=== PATIENT | female | born 1990 | race Asian ===

== ENCOUNTER 2018-06-23 08:14 | Emergency (ER) | payer OTHER ==
[~2018-06-23] VITALS: Ht 165.1 cm; Wt 68.8 kg
[2018-06-23 09:40] LABS: BASOPHILS % (AUTO) 0.9 % (0-1); EOSINOPHILS # (AUTO) 0.1 X10'3 (0-0.9); EOSINOPHILS % (AUTO) 2.4 % (0-6); HEMATOCRIT 34.4 % (35.0-45.0); LYMPHOCYTES # (AUTO) 1.2 X10'3 (1.1-4.8); LYMPHOCYTES % (AUTO) 22.7 % (21-51); MEAN CORPUSCULAR HEMOGLOBIN 30.2 PG (27.0-31.0); MEAN CORPUSCULAR HGB CONC 34.9 g/dL (33.0-36.5); MEAN CORPUSCULAR VOLUME 86.7 FL (78-98); MEAN PLATELET VOLUME 8.1 FL (7.4-10.4); MONOCYTES # (AUTO) 0.4 X10'3 (0-0.9); MONOCYTES % (AUTO) 7.7 % (2-12); NEUTROPHILS # (AUTO) 3.6 X10'3 (1.8-7.7); NEUTROPHILS % (AUTO) 66.3 % (42-75); PLATELET COUNT 222 X10'3 (140-440); RED BLOOD COUNT 3.96 X10'6 (4.20-5.60); RED CELL DISTRIBUTION WIDTH 13.7 % (11.5-14.5); WHITE BLOOD COUNT 5.5 X10'3 (4.5-11.0)
[2018-06-23 09:42] LABS: CLARITY,URINE CLOUDY (Clear); COLOR,URINE YELLOW (Yellow); GLUCOSE, URINE NEGATIVE (Neg); KETONES,URINE NEGATIVE (Neg); LEUKOCYTE ESTERASE ,URINE NEGATIVE (Neg); NITRITES, URINE NEGATIVE (Neg); OCCULT BLOOD,URINE LARGE (Neg); PH,URINE 5.5 (4.8-8.0); PROTEIN,URINE NEGATIVE (Neg); UROBILINOGEN,URINE 0.2 E.U/dL (0.2-1.0)
[2018-06-23 09:46] LABS: UA COLLECTION TYPE CLN CATCH MIDSTREAM
[2018-06-23 09:47] LABS: BACTERIA,URINE 1+ /HPF (Neg); MUCUS STRANDS MODERATE /LPF (Neg); RBC,URINE 0-2 /HPF (0-2); SQUAMOUS EPITHELIAL CELL,UR MANY /LPF (FEW); WBC,URINE 0-4 /HPF (0-4)
[2018-06-23 11:53] VITALS: BP 109/61
== END 2018-06-23 12:41 | disposition home or self-care (01) ==
LOC: ER 08:14
DX: O41.8X10 Other specified disorders of amniotic fluid and membranes, first trimester, not applicable or unspecified (principal); O46.8X1 Other antepartum hemorrhage, first trimester; Z3A.10 10 weeks gestation of pregnancy; Z98.890 Other specified postprocedural states
CPT/HCPCS: 36415; 76801; 81001; 84702; 85025; 86900; 86901; 99285

== ENCOUNTER 2018-07-08 09:43 | Outpatient (CLI) | payer OTHER ==
[2018-07-08 10:43] LABS: BASOPHILS % (AUTO) 0.4 % (0-1); EOSINOPHILS # (AUTO) 0.2 X10'3 (0-0.9); EOSINOPHILS % (AUTO) 2.9 % (0-6); HEMATOCRIT 36.7 % (35.0-45.0); HEMOGLOBIN 12.6 g/dl (12.0-16.0); LYMPHOCYTES # (AUTO) 1.2 X10'3 (1.1-4.8); LYMPHOCYTES % (AUTO) 22.3 % (21-51); MEAN CORPUSCULAR HEMOGLOBIN 29.9 PG (27.0-31.0); MEAN CORPUSCULAR HGB CONC 34.3 g/dL (33.0-36.5); MEAN PLATELET VOLUME 8.4 FL (7.4-10.4); MONOCYTES # (AUTO) 0.3 X10'3 (0-0.9); NEUTROPHILS # (AUTO) 3.7 X10'3 (1.8-7.7); NEUTROPHILS % (AUTO) 68.4 % (42-75); PLATELET COUNT 228 X10'3 (140-440); RED BLOOD COUNT 4.23 X10'6 (4.20-5.60); WHITE BLOOD COUNT 5.5 X10'3 (4.5-11.0)
[2018-07-08 11:35] LABS: HIV ANTIBODY 1&2 RAPID NON-REACTIVE (Neg)
[2018-07-09 08:18] LABS: RPR Non Reactive (Non Reactive)
== END 2018-07-08 23:59 | disposition home or self-care (01) ==
LOC: LAB 09:43
PROVIDERS: ATTEND Physician Assistant
DX: Z34.91 Encounter for supervision of normal pregnancy, unspecified, first trimester (principal); Z3A.12 12 weeks gestation of pregnancy
CPT/HCPCS: 36415; 83036; 85025; 86592; 86703; 86706; 86762; 86900; 86901; 87088

== ENCOUNTER 2018-12-17 00:56 | Emergency (ER) | payer OTHER ==
[~2018-12-17] VITALS: Ht 170.2 cm; Wt 78.2 kg
[2018-12-17] MEDS ORDERED: famotidine 20mg tablet PO ONE (01:15)
[2018-12-17] MEDS ORDERED: mag hydrox/Alum hydrox/simeth 30ml oral suspension PO ONE (01:15)
[2018-12-17] MEDS ORDERED: LIDOcaine Viscous 15ml cup PO ONE (01:15)
--- NOTE | 2018-12-17 01:32 | NUR ---
PT PROVIDED UA. DR. AKHTAR REPORTS HE WILL GIVE GI COCKTAIL AND SEE HOW SHE RESPONDS, MY NEED TO DO LABS LATER. AT BEDSIDE
[2018-12-17] MEDS ORDERED: normal saline 1000ML IV soln IVB ONE (01:40)
[2018-12-17] MEDS ORDERED: morphine 4 MG/ML inj SYRINge IV PRN (01:40)
[2018-12-17 02:09] LABS: BASOPHILS # (AUTO) 0.1 X10'3 (0-0.2); BASOPHILS % (AUTO) 0.8 % (0-1); EOSINOPHILS # (AUTO) 0.1 X10'3 (0-0.9); EOSINOPHILS % (AUTO) 1.8 % (0-6); HEMOGLOBIN 11.7 g/dl (12.0-16.0); LYMPHOCYTES # (AUTO) 0.9 X10'3 (1.1-4.8); LYMPHOCYTES % (AUTO) 12.5 % (21-51); MEAN CORPUSCULAR HEMOGLOBIN 29.8 PG (27.0-31.0); MEAN CORPUSCULAR HGB CONC 34.4 g/dL (33.0-36.5); MEAN CORPUSCULAR VOLUME 86.7 FL (78-98); MONOCYTES # (AUTO) 0.5 X10'3 (0-0.9); MONOCYTES % (AUTO) 7.6 % (2-12); NEUTROPHILS # (AUTO) 5.4 X10'3 (1.8-7.7); NEUTROPHILS % (AUTO) 77.3 % (42-75); PLATELET COUNT 155 X10'3 (140-440); RED BLOOD COUNT 3.93 X10'6 (4.20-5.60); RED CELL DISTRIBUTION WIDTH 15.5 % (11.5-14.5)
[2018-12-17 02:09] LABS: CLARITY,URINE CLEAR (Clear); COLOR,URINE YELLOW (Yellow); GLUCOSE, URINE NEGATIVE (Neg); KETONES,URINE NEGATIVE (Neg); LEUKOCYTE ESTERASE ,URINE NEGATIVE (Neg); NITRITES, URINE NEGATIVE (Neg); OCCULT BLOOD,URINE NEGATIVE (Neg); PH,URINE 6.5 (4.8-8.0); PROTEIN,URINE NEGATIVE (Neg); UROBILINOGEN,URINE 0.2 E.U/dL (0.2-1.0)
[2018-12-17 02:11] LABS: UA COLLECTION TYPE VOIDED
--- NOTE | 2018-12-17 02:21 | NUR ---
PT REPROTS PAIN NOW DOWN TO 5 OUT OF 10 APROX 45 MIN AFTER GI COCKTAIL ADMINISTERED. LABS DRAWN URINE SENT TO LAB AND 1 LITER NS STARTED. PT DECLINES NEED FOR MORPHINE AT THIS TIME. REMAINS AT BEDSIDE.
[2018-12-17 02:22] LABS: ALANINE AMINOTRANSFERASE 34 U/L (12-78); ALBUMIN 3.1 G/DL (3.4-5.0); ALBUMIN/GLOBULIN RATIO 0.7 (1.1-1.5); ALKALINE PHOSPHATASE 123 IU/L (46-116); ANION GAP 9 (8-16); ASPARTATE AMINO TRANSFERASE 116 U/L (10-37); BILIRUBIN,TOTAL 1.7 MG/DL (0.1-1.0); BLOOD UREA NITROGEN 6 MG/DL (7-18); BUN/CREATININE RATIO 10.7 (6.6-38.0); CHLORIDE 102 MMOL/L (99-107); CREATININE 0.56 MG/DL (0.40-0.90); GLUCOSE 92 MG/DL (70-104); LIPASE 115 U/L (73-393); POTASSIUM 3.7 MMOL/L (3.5-5.1); SODIUM 135 MMOL/L (135-145); TOTAL PROTEIN 7.4 G/DL (6.4-8.2); eGFR > 90 ML/MIN
--- NOTE | 2018-12-17 02:50 | NUR ---
dr. pimentel talking with pts about dc instruction. he reports he will call dr. harry chang in am.
[2018-12-17 02:51] VITALS: BP 102/64
== END 2018-12-17 02:57 | disposition home or self-care (01) ==
LOC: ER 00:57
DX: O26.893 Other specified pregnancy related conditions, third trimester (principal); R10.13 Epigastric pain; E80.7 Disorder of bilirubin metabolism, unspecified; Z98.890 Other specified postprocedural states; Z3A.34 34 weeks gestation of pregnancy
CPT/HCPCS: 36415; 80053; 81003; 83690; 85025; 99283; 99284

== ENCOUNTER 2019-05-19 09:40 | Day surgery (SDC) | payer OTHER ==
[2019-05-13 10:13] LABS: BASOPHILS # (AUTO) 0.1 X10'3 (0-0.2); BASOPHILS % (AUTO) 1.2 % (0-1); EOSINOPHILS # (AUTO) 0.2 X10'3 (0-0.9); EOSINOPHILS % (AUTO) 3.5 % (0-6); LYMPHOCYTES # (AUTO) 1.4 X10'3 (1.1-4.8); LYMPHOCYTES % (AUTO) 28.5 % (21-51); MEAN CORPUSCULAR HEMOGLOBIN 27.6 PG (27.0-31.0); MEAN CORPUSCULAR HGB CONC 33.5 g/dL (33.0-36.5); MEAN CORPUSCULAR VOLUME 82.3 FL (78-98); MEAN PLATELET VOLUME 7.9 FL (7.4-10.4); MONOCYTES # (AUTO) 0.4 X10'3 (0-0.9); MONOCYTES % (AUTO) 8.1 % (2-12); NEUTROPHILS # (AUTO) 2.9 X10'3 (1.8-7.7); NEUTROPHILS % (AUTO) 58.7 % (42-75); PRE OP HEMATOCRIT 38.7 % (35.0-45.0); PRE OP PLATELET COUNT 244 X10'3 (140-440); RED BLOOD COUNT 4.71 X10'6 (4.20-5.60); RED CELL DISTRIBUTION WIDTH 16.7 % (11.5-14.5)
[2019-05-13 10:32] LABS: ALBUMIN 4.3 G/DL (3.4-5.0); ALKALINE PHOSPHATASE 73 IU/L (46-116); BLOOD UREA NITROGEN 11 MG/DL (7-18); BUN/CREATININE RATIO 20.4 (6.6-38.0); CALCIUM 9.5 MG/DL (8.5-10.1); CHLORIDE 102 MMOL/L (99-107); CREATININE 0.54 MG/DL (0.40-0.90); PRE OP ALT 17 U/L (30-65); PRE OP ANION GAP 7 (8-16); PRE OP AST 17 U/L (10-37); PRE OP BILIRUB, TOTAL 0.5 MG/DL (0.0-1.0); PRE OP GLUCOSE 109 MG/DL (70-104); PRE OP POTASSIUM 3.9 MMOL/L (3.4-5.1); PRE OP SODIUM 137 MMOL/L (135-145); TOTAL CARBON DIOXIDE 27.7 MMOL/L (24-32); TOTAL PROTEIN 8.5 G/DL (6.4-8.2); eGFR > 90 ML/MIN
[2019-05-13 10:50] LABS: HCG SERUM QL NEGATIVE
[2019-05-19] VITALS (13 sets, daily range): BP systolic 101–136; BP diastolic 60–84
[~2019-05-19] VITALS: Ht 165.1 cm; Wt 68.0 kg
[~2019-05-19 09:40] MED LIST: NO HOME MEDS; famotidine 10mg tablet PO ONE; ringers solution, lacted 1,000 ML IV SCH
[2019-05-19] MEDS ORDERED: BUPIVAcaine/PF 2.5 mg/ml (0.25%) 30ml vial ONE (13:38)
[2019-05-19] MEDS ORDERED: ringers solution, lacted 1,000 ML IV SCH (13:41)
[2019-05-19] MEDS ORDERED: labetalol 20mg/4ml (5mg/ml) syringe IV PRN (13:45)
[2019-05-19] MEDS ORDERED: ondansetron/PF 4mg/2ml inj IV PRN (13:45)
[2019-05-19] MEDS ORDERED: fentaNYL/PF 50MCG/1 ML 2ML syringe IV PRN ×2 (13:45)
[2019-05-19] MEDS ORDERED: morphine 4 MG/ML inj SYRINge IV PRN ×2 (13:45)
[2019-05-19] MEDS ORDERED: hydrALAZINE 20mg/ml inj. IV PRN (13:45)
[2019-05-19] MEDS ORDERED: midazolam 2 mg/2 ml injection ONE (13:46)
[2019-05-19] MEDS ORDERED: fentaNYL/PF 50MCG/1 ML 2ML syringe ONE (13:46)
[2019-05-19] MEDS ORDERED: dexamethasone sod phosphate 10mg/ml inj ONE (13:47)
[2019-05-19] MEDS ORDERED: sevoflurane 250ml liquid IH ONE (13:47)
[2019-05-19] MEDS ORDERED: LIDOcaine 2% (20mg/ml) 5ml vial ONE (13:47)
[2019-05-19] MEDS ORDERED: neostigmine methylsulfate 1 MG/ML 10ml vial ONE (13:47)
[2019-05-19] MEDS ORDERED: propofol inj 20 ML IV ONE (13:47)
[2019-05-19] MEDS ORDERED: glycopyrrolate 0.2mg/ml inj ONE (13:47)
[2019-05-19] MEDS ORDERED: ondansetron/PF 4mg/2ml inj ONE (13:47)
[2019-05-19] MEDS ORDERED: rocuronium 10mg/ml inj IV ONE (13:47)
--- NOTE | 2019-05-19 14:55 | NUR ---
Received from OR via [facility], accompanied by Anesthesiologist DR NUNEZ and report given by Anesthesiologist. PT VERY DROWSY, NO S/S OF DISTRESS/DISCOMFORT, ABDOMEN W 3/LAP SITES W/BANDAIDS CDI, KING PAD IN PLACE CDI. Addendum: 05/19/19 at 1516 by Selin Dyson RN Amended: Links added.
--- NOTE | 2019-05-19 17:05 | NUR ---
D/C INSTRUCTIONS GIVEN AND GONE OVER W/PT AND PTS WHO VERBALIZES UNDERSTANDING, PT D/CD TO HOME VIA W/C TO PRIVATE VEHICLE W/O INCIDENT. Addendum: 05/19/19 at 1750 by Selin Dyson RN Amended: Links added.
== END 2019-05-19 17:05 | disposition home or self-care (01) ==
LOC: PAS 09:40
PROVIDERS: ATTEND Obstetrics & Gynecology
DX: Z30.2 Encounter for sterilization (principal); N73.6 Female pelvic peritoneal adhesions (postinfective); Z79.899 Other long term (current) drug therapy
CPT/HCPCS: 36415; 58670; 80053; 82948; 84703; 85025; 86885; 86900; 86901; J1100; J2001; J2250; J2270; J2405; J2704; J2710; J3010; J3490; J7120; A4618; A6250

== ENCOUNTER 2019-12-06 11:08 | Outpatient (CLI) | payer BC ==
[~2019-12-06 11:08] MED LIST changes: -famotidine 10mg tablet PO ONE; -ringers solution, lacted 1,000 ML IV SCH
[2019-12-06 12:40] LABS: BASOPHILS % (AUTO) 0.7 % (0-1); EOSINOPHILS # (AUTO) 0.2 X10'3 (0-0.9); HEMATOCRIT 39.7 % (35.0-45.0); HEMOGLOBIN 13.2 g/dl (12.0-16.0); LYMPHOCYTES # (AUTO) 1.8 X10'3 (1.1-4.8); LYMPHOCYTES % (AUTO) 35.8 % (21-51); MEAN CORPUSCULAR HEMOGLOBIN 28.7 PG (27.0-31.0); MEAN CORPUSCULAR HGB CONC 33.2 g/dL (33.0-36.5); MEAN CORPUSCULAR VOLUME 86.7 FL (78-98); MEAN PLATELET VOLUME 8.3 FL (7.4-10.4); MONOCYTES # (AUTO) 0.4 X10'3 (0-0.9); MONOCYTES % (AUTO) 7.9 % (2-12); NEUTROPHILS # (AUTO) 2.5 X10'3 (1.8-7.7); NEUTROPHILS % (AUTO) 51.6 % (42-75); PLATELET COUNT 206 X10'3 (140-440); RED BLOOD COUNT 4.58 X10'6 (4.20-5.60); RED CELL DISTRIBUTION WIDTH 13.5 % (11.5-14.5); WHITE BLOOD COUNT 4.9 X10'3 (4.5-11.0)
[2019-12-06 12:51] LABS: CLARITY,URINE CLEAR (Clear); COLOR,URINE YELLOW (Yellow); GLUCOSE, URINE NEGATIVE (Neg); KETONES,URINE NEGATIVE (Neg); LEUKOCYTE ESTERASE ,URINE NEGATIVE (Neg); NITRITES, URINE NEGATIVE (Neg); OCCULT BLOOD,URINE NEGATIVE (Neg); PROTEIN,URINE NEGATIVE (Neg); UROBILINOGEN,URINE 0.2 E.U/dL (0.2-1.0)
[2019-12-06 12:55] LABS: UA COLLECTION TYPE CLN CATCH MIDSTREAM
[2019-12-06 13:01] LABS: ALANINE AMINOTRANSFERASE 10 U/L (12-78); ALBUMIN 4.3 G/DL (3.4-5.0); ALKALINE PHOSPHATASE 56 IU/L (46-116); ANION GAP 9 (8-16); ASPARTATE AMINO TRANSFERASE 12 U/L (10-37); BILIRUBIN,TOTAL 0.7 MG/DL (0.1-1.0); BLOOD UREA NITROGEN 8 MG/DL (7-18); BUN/CREATININE RATIO 14.8 (6.6-38.0); CHLORIDE 104 MMOL/L (99-107); CHOL/HDL RATIO 4.2 (0.00-4.99); CHOLESTEROL 209 MG/DL (0-200); CREATININE 0.54 MG/DL (0.40-0.90); GLUCOSE 92 MG/DL (70-104); HDL CHOLESTEROL 50 MG/DL (35-60); LDL CHOLESTEROL 139 MG/DL (50-100); POTASSIUM 3.8 MMOL/L (3.5-5.1); SODIUM 138 MMOL/L (135-145); TOTAL CARBON DIOXIDE 25.5 MMOL/L (24-32); TOTAL PROTEIN 8.5 G/DL (6.4-8.2); TRIGLYCERIDES 101 MG/DL (20-135); eGFR > 90 ML/MIN
[2019-12-06 16:50] LABS: H PYLORI ANTIBODY NEGATIVE (Neg)
== END 2019-12-06 23:59 | disposition home or self-care (01) ==
LOC: LAB 11:08
PROVIDERS: ATTEND Internal Medicine
DX: I10 Essential (primary) hypertension (principal); E78.00 Pure hypercholesterolemia, unspecified; R19.7 Diarrhea, unspecified; N39.0 Urinary tract infection, site not specified
CPT/HCPCS: 36415; 80053; 80061; 81003; 85025; 86677

== ENCOUNTER 2019-12-12 09:10 | Outpatient (CLI) | payer BC ==
[~2019-12-12] VITALS: Ht 162.6 cm; Wt 72.0 kg
[2019-12-12] MEDS ORDERED: NORMAL SALINE IV ONE (11:00)
[2019-12-12] MEDS ORDERED: SINCALIDE IV ONE (11:00)
== END 2019-12-12 23:59 | disposition home or self-care (01) ==
LOC: RAD 09:10
PROVIDERS: ATTEND Internal Medicine
DX: K82.4 Cholesterolosis of gallbladder (principal); R06.02 Shortness of breath
CPT/HCPCS: 71046; 76700; 78227; A9537; J2805

== ENCOUNTER 2020-05-25 06:15 | Day surgery (SDC) | payer BC ==
[2020-05-18 12:13] LABS: BASOPHILS % (AUTO) 0.6 % (0-1); EOSINOPHILS # (AUTO) 0.2 X10'3 (0-0.9); LYMPHOCYTES % (AUTO) 37.1 % (21-51); MEAN CORPUSCULAR HEMOGLOBIN 29.3 PG (27.0-31.0); MEAN CORPUSCULAR HGB CONC 33.3 g/dL (33.0-36.5); MEAN PLATELET VOLUME 8.3 FL (7.4-10.4); MONOCYTES # (AUTO) 0.4 X10'3 (0-0.9); MONOCYTES % (AUTO) 7.4 % (2-12); NEUTROPHILS # (AUTO) 2.8 X10'3 (1.8-7.7); NEUTROPHILS % (AUTO) 51.9 % (42-75); PRE OP HEMATOCRIT 41.2 % (35.0-45.0); PRE OP HEMOGLOBIN 13.7 g/dL (12.0-16.0); PRE OP PLATELET COUNT 251 X10'3 (140-440); RED BLOOD COUNT 4.68 X10'6 (4.20-5.60); RED CELL DISTRIBUTION WIDTH 13.6 % (11.5-14.5)
[2020-05-18 12:44] LABS: HCG SERUM QL NEGATIVE
[~2020-05-25] VITALS: Ht 165.1 cm; Wt 72.1 kg
[2020-05-25] VITALS (7 sets, daily range): BP systolic 104–111; BP diastolic 62–74
[~2020-05-25 06:15] MED LIST changes: +ceFAZolin 2gm in dextrose, iso 50 ML IV ONE; +famotidine 20mg tablet PO ONE; +ringers solution, lacted 1,000 ML IV SCH
[2020-05-25] MEDS ORDERED: LIDOcaine 0.5% (5mg/ml) 50ml vial ONE (06:44)
[2020-05-25] MEDS ORDERED: BUPIVAcaine/PF 2.5mg/ml (0.25%) 10ml vial ONE (06:44)
[2020-05-25] MEDS ORDERED: fentaNYL/PF 50MCG/1 ML 2ML syringe ONE (09:20)
[2020-05-25] MEDS ORDERED: midazolam 2 mg/2 ml injection ONE (09:29)
[2020-05-25] MEDS ORDERED: propofol inj 20 ML IV ONE (09:35)
--- NOTE | 2020-05-25 09:49 | NUR ---
Received from OR via [facility] , accompanied by Anesthesiologist KAYLYNN and report given by Anesthesiolgist. PATIENT WITH 20GP IV IN RIGHTUE RUNNING LR AT 100. DENIES PAIN AT THIS TIME. LEFT WRIST DRESSING IS CDI VSS Addendum: 05/25/20 at 0957 by Rikki Johnson RN, RN Amended: Links added.
--- NOTE | 2020-05-25 10:29 | NUR ---
PATIENT VERBALIZED UNDERSTANDING, OPPORTUNITY TO ASK QUESTIONS GIVEN AND PATIENT COMFORTABLE WITH DC. IV TAKEN OUT WITHOUT COMPLICATION. PATIENT HAS MET ALL DC CRITERIA FOR DC HOME. I HAVE REVIEWED D/C INSTRUCTIONS WITH PATIENT. TAKEN OUT VIA WHEELCHAIR WHERE PATIENT WAS TAKEN HOME WITH ALL BELONGINGS. FAMILY GAVE PATIENT TRANSPORT HOME. ALL INSTRUCTIONS DISCUSSED WITH SPOUSE NIT WELL 2' LANGUAGE BARRIER WITH PATIENT. Addendum: 05/25/20 at 1048 by Rikki Johnson RN, RN Amended: Links added.
== END 2020-05-25 10:29 | disposition home or self-care (01) ==
LOC: PAS 06:15
PROVIDERS: ATTEND Orthopaedic Surgery Hand Surgery
DX: M67.432 Ganglion, left wrist (principal); Z20.822 Contact with and (suspected) exposure to COVID-19; Z79.899 Other long term (current) drug therapy; Z98.890 Other specified postprocedural states
CPT/HCPCS: 25111; 36415; 82948; 84703; 85025; 87635; J2001; J2250; J2704; J3010; J3490; J7120; A4215; A4618; A7000

== ENCOUNTER 2020-07-13 05:43 | Day surgery (SDC) | payer BC ==
[2020-07-06 10:42] LABS: BASOPHILS # (AUTO) 0.1 X10'3 (0-0.2); BASOPHILS % (AUTO) 1.1 % (0-1); EOSINOPHILS # (AUTO) 0.3 X10'3 (0-0.9); EOSINOPHILS % (AUTO) 5.4 % (0-6); LYMPHOCYTES # (AUTO) 1.6 X10'3 (1.1-4.8); MEAN CORPUSCULAR HEMOGLOBIN 29.2 PG (27.0-31.0); MEAN CORPUSCULAR HGB CONC 33.5 g/dL (33.0-36.5); MEAN CORPUSCULAR VOLUME 87.3 FL (78-98); MEAN PLATELET VOLUME 8.1 FL (7.4-10.4); MONOCYTES # (AUTO) 0.3 X10'3 (0-0.9); MONOCYTES % (AUTO) 7.2 % (2-12); NEUTROPHILS # (AUTO) 2.5 X10'3 (1.8-7.7); NEUTROPHILS % (AUTO) 52.3 % (42-75); PRE OP HEMATOCRIT 42.1 % (35.0-45.0); PRE OP HEMOGLOBIN 14.1 g/dL (12.0-16.0); PRE OP PLATELET COUNT 247 X10'3 (140-440); RED BLOOD COUNT 4.82 X10'6 (4.20-5.60); RED CELL DISTRIBUTION WIDTH 13.3 % (11.5-14.5)
[~2020-07-13] VITALS: Ht 165.1 cm; Wt 72.1 kg
[2020-07-13] VITALS (7 sets, daily range): BP systolic 104–118; BP diastolic 64–77
[2020-07-13] MEDS ORDERED: LIDOcaine 1% (10mg/ml) 2ml vial ONE (05:57)
[2020-07-13] MEDS ORDERED: BUPIVAcaine/PF 2.5mg/ml (0.25%) 10ml vial ONE (06:50)
[2020-07-13] MEDS ORDERED: LIDOcaine 0.5% (5mg/ml) 50ml vial ONE (07:36)
[2020-07-13] MEDS ORDERED: fentaNYL/PF 50MCG/1 ML 2ML syringe ONE (07:39)
[2020-07-13] MEDS ORDERED: midazolam 1 mg/ML 2ml injection ONE (07:39)
[2020-07-13] MEDS ORDERED: ondansetron/PF 4mg/2ml inj IV PRN (07:50)
[2020-07-13] MEDS ORDERED: meperidine/PF 25mg/ml syringe IV PRN ×3 (07:50)
[2020-07-13] MEDS ORDERED: morphine 4 MG/ML inj SYRINge IV PRN (07:50)
[2020-07-13] MEDS ORDERED: ringers solution, lacted 1,000 ML IV SCH (07:50)
[2020-07-13] MEDS ORDERED: morphine 2 MG/ML inj. syringe IV PRN (07:50)
[2020-07-13] MEDS ORDERED: proCHLORperazine 10 MG/2 ml inj IV PRN (07:50)
[2020-07-13] MEDS ORDERED: acetaminophen 1,000mg/100ml IV 100 ML IV PRN (07:50)
[2020-07-13] MEDS ORDERED: propofol inj 20 ML IV ONE (07:59)
--- NOTE | 2020-07-13 08:07 | NUR ---
Received from OR via [facility], accompanied by Anesthesiologist and report given by Anesthesiologist. PT DROWSY, NO S/S OF DISTRESS/DISCOMFORT. RIGHT HAND/WRIST W/BIAS WRAP COVERING INCISION/DRSG CDI. FINGERS PWD, QA INTERN 1-2 SECONDS. Addendum: 07/13/20 at 0823 by Selin Dyson RN Amended: Links added.
== END 2020-07-13 08:07 | disposition home or self-care (01) ==
LOC: PAS 05:43
PROVIDERS: ATTEND Orthopaedic Surgery Hand Surgery
DX: M67.431 Ganglion, right wrist (principal); Z79.899 Other long term (current) drug therapy; Z98.890 Other specified postprocedural states; Z90.79 Acquired absence of other genital organ(s); Z20.822 Contact with and (suspected) exposure to COVID-19
CPT/HCPCS: 25111; 36415; 85025; J2001; J2250; J2704; J3010; J3490; J7120; U0003; A4215; A4615; A4618

== ENCOUNTER 2023-06-08 11:17 | Outpatient (CLI) | payer BC ==
[~2023-06-08 11:17] MED LIST changes: -ceFAZolin 2gm in dextrose, iso 50 ML IV ONE; -famotidine 20mg tablet PO ONE; -ringers solution, lacted 1,000 ML IV SCH
[2023-06-08 11:56] LABS: BASOPHILS # (AUTO) 0.1 X10'3 (0-0.2); EOSINOPHILS # (AUTO) 0.2 X10'3 (0-0.9); EOSINOPHILS % (AUTO) 4.3 % (0-6); HEMATOCRIT 40.8 % (35.0-45.0); HEMOGLOBIN 13.8 g/dl (12.0-16.0); LYMPHOCYTES # (AUTO) 1.9 X10'3 (1.1-4.8); LYMPHOCYTES % (AUTO) 34.3 % (21-51); MEAN CORPUSCULAR HEMOGLOBIN 29.5 PG (27.0-31.0); MEAN CORPUSCULAR HGB CONC 33.8 g/dL (33.0-36.5); MEAN CORPUSCULAR VOLUME 87.4 FL (78-98); MEAN PLATELET VOLUME 7.7 FL (7.4-10.4); MONOCYTES # (AUTO) 0.4 X10'3 (0-0.9); MONOCYTES % (AUTO) 6.4 % (2-12); PLATELET COUNT 272 X10'3 (140-440); RED BLOOD COUNT 4.67 X10'6 (4.20-5.60); RED CELL DISTRIBUTION WIDTH 13.5 % (11.5-14.5); WHITE BLOOD COUNT 5.5 X10'3 (4.5-11.0)
[2023-06-08 12:52] LABS: ALANINE AMINOTRANSFERASE 17 U/L (12-78); ALBUMIN 4.4 G/DL (3.4-5.0); ALKALINE PHOSPHATASE 56 IU/L (46-116); ANION GAP 11 (8-16); ASPARTATE AMINO TRANSFERASE 14 U/L (10-37); BILIRUBIN,TOTAL 0.5 MG/DL (0.1-1.0); BLOOD UREA NITROGEN 11 MG/DL (7-18); BUN/CREATININE RATIO 17.5 (10.0-20.0); CALCIUM 9.4 MG/DL (8.5-10.1); CHLORIDE 103 MMOL/L (99-107); CHOL/HDL RATIO 5.4 (0.00-4.99); CHOLESTEROL 274 MG/DL (0-200); CREATININE 0.63 MG/DL (0.40-0.90); FREE T4 (FREE THYROXINE) 0.83 NG/DL (0.73-1.40); GLUCOSE 85 MG/DL (70-104); HDL CHOLESTEROL 51 MG/DL (35-60); LDL CHOLESTEROL 175 MG/DL (50-100); POTASSIUM 3.9 MMOL/L (3.5-5.1); SODIUM 139 MMOL/L (135-145); THYROID STIMULATING HORMONE 1.85 ulU/ml (0.34-4.50); TOTAL CARBON DIOXIDE 24.9 MMOL/L (24-32); TRIGLYCERIDES 188 MG/DL (20-135); eGFR > 90 ML/MIN
== END 2023-06-08 23:59 | disposition home or self-care (01) ==
LOC: LAB 11:17
PROVIDERS: ATTEND Internal Medicine
DX: Z00.00 Encounter for general adult medical examination without abnormal findings (principal); R10.32 Left lower quadrant pain; N89.8 Other specified noninflammatory disorders of vagina; K80.20 Calculus of gallbladder without cholecystitis without obstruction; R51.9 Headache, unspecified
CPT/HCPCS: 36415; 80053; 80061; 82306; 84439; 84443; 85025; 86376